=== PATIENT | female | born 1945 | race Caucasian/White ===

== ENCOUNTER → 2017-03-16 | Outpatient (CLI) | payer MEDICARE ==
[~2017-03-16] MED LIST: CITA-157 PO; FURO40TA35 PO; HYDR200T38 PO; LAMO25TA64 PO; LAMO25TB2 PO; LEVE100047 PO; LORA-1455 PO; LORA-1458 PO; MELO-149 PO; OXYC-865 PO; ZOLP-350 PO
--- NOTE | 2017-03-16 14:22 | EKG ---
FACILITY: [facility] [place] PATIENT NAME: ANIVAL ARMSTRONG : [id number] MR: [id number] V: [id number] EXAM DATE: ORDERING PHYSICIAN: SRIDHAR CAMACHO TECHNOLOGIST: MARYSOL Payne Reason : PREOP Blood Pressure : / mmHG Vent. Rate : 057 BPM Atrial Rate : 057 BPM P-R Int : 178 ms QRS Dur : 094 ms QT Int : 492 ms P-R-T Axes : 054 031 055 degrees QTc Int : 478 ms Sinus bradycardia Nonspecific T wave abnormality Prolonged QT Abnormal ECG No previous ECGs available Confirmed by LEI CAMP ([id number]) on 03/16/2017 2:59:09 PM Referred By: JANICE Confirmed By:LEI CAMP
--- NOTE | 2017-03-16 15:00 | RADIOLOGY IMAGING REPORT ---
FACILITY: [facility] [place]IENT NAME: Reena Iqbal : 1945 MR: [id number] V: [id number] EXAM DATE: ORDERING PHYSICIAN: SRIDHAR CAMACHO TECHNOLOGIST: Location: [facility] Patient: Reena Iqbal : 1945 Visit/Account:[id number] Date of Sevice: 03/16/2017 CT right shoulder Indication: Humerus fracture. Further characterize. Comparison: None available. Technique: Axial CT images were obtained through the right shoulder. Reformatted coronal and sagittal images were reviewed. One of the following dose optimization techniques was utilized in the performance of this exam: Autom ated exposure control; adjustment of the mA and/or kV according to the patient's size; or use of an i terative reconstruction technique. Specific details can be referenced in the facility's radiology C T exam operational policy. Findings: There is a comminuted fracture deformity of the proximal right humerus. While this is age indetermina nt, appearance suggests that this is subacute to chronic. Main fracture line is felt to involve the s urgical neck region. There is impaction at the fracture site. There is bone loss involving the love l head. Appearance is most consistent with an ununited fracture with a pseudoarthrosis between the hu meral head and the distal humerus. This would account for the humeral head bone loss. There is some s cattered bony callus and scattered fracture fragments. No evidence of bridging bone or callus is iden tified. Correlation with the acuity of this fracture is necessary. There is a type II acromion. There is a small subacromial spur. There are mild to moderate severity c hanges of acromioclavicular joint osteoarthritis. With respect to the glenohumeral joint, there is inferior subluxation of the humeral head with respec t to the glenoid. This may reflect a pseudosubluxation as there is an associated joint effusion suspe cted. There is also fluid suspected within the subacromial-subdeltoid bursa. No axillary adenopathy. Limited images of the right lung are clear. IMPRESSION: 1. Ununited, comminuted proximal right humerus fracture with impaction of the distal fracture fragmen t with the humeral head with associated humeral head bone loss. Appearance is most consistent with an evolving pseudoarthrosis in this location. 2. Mild inferior subluxation of the humeral head with respect to the glenoid. This may be related to an underlying glenohumeral joint effusion. Report Dictated By: Alphonse Lechuga at 03/16/2017 2:39 PM Report E-Signed By: Alphonse Lechuga at 03/16/2017 2:55 PM WSN:[id number]
--- NOTE | 2017-03-17 17:18 | RADIOLOGY IMAGING REPORT ---
FACILITY: [facility] PATIENT NAME: Reena Iqbal : 1945 MR: [id number] V: [id number] EXAM DATE: ORDERING PHYSICIAN: SRIDHAR CAMACHO TECHNOLOGIST: Location: [facility] Patient: Reena Iqbal : 1945 Visit/Account:[id number] Date of Sevice: 03/17/2017 Exam type: SHOULDER 1 VIEW RIGHT History: Status post right shoulder replacement Comparison: CT right shoulder March 16, 2017. Findings: There is a right shoulder arthroplasty that appears in good anatomic alignment on this single AP view . Skin analia project adjacent to the prosthesis IMPRESSION: 1. As above Report Dictated By: No Simons MD at 03/17/2017 5:12 PM Report E-Signed By: No Simons MD at 03/17/2017 5:13 PM WSN:[id number]
== END ==
LOC: CT 12:01
PROVIDERS: ATTEND Orthopaedic Surgery
DX: S42.201A Unspecified fracture of upper end of right humerus, initial encounter for closed fracture (principal); R94.31 Abnormal electrocardiogram [ECG] [EKG]; R00.1 Bradycardia, unspecified
CPT/HCPCS: 93005

== ENCOUNTER 2017-03-17 02:31 | Inpatient (IN) | payer MEDICARE ==
[2017-03-16 15:12] LABS: INR 0.96
[~2017-03-17] VITALS: Ht 165.1 cm; Wt 74.8 kg
[2017-03-17] VITALS (14 sets, daily range): BP systolic 85–146; BP diastolic 45–80
--- NOTE | 2017-03-17 04:56 | LEVENE H&P ---
DATE OF ADMISSION: March 17, 2017 IDENTIFICATION/CHIEF COMPLAINT The patient is a 71-year-old woman with a chief complaint of right shoulder pain and disability. HISTORY OF PRESENT ILLNESS Patient sustained a fall in December and had a displaced fracture of her proximal humerus. This has become further displaced, and she has failed to make any progress. Surgery is indicated to relieve pain and improve function. PAST MEDICAL HISTORY Notable for remote history of blood transfusion, rheumatoid arthritis, depression, seizure disorder. PAST SURGICAL HISTORY Notable for a bowel resection. She has also had contralateral elbow fracture with total elbow arthroplasty. ALLERGIES MORPHINE that causes itching and shortness of breath and SULFA DRUGS that does the same. CURRENT MEDICATIONS 1. Lasix 40 mg p.o. daily. 2. Plaquenil 200 mg 2 tabs p.o. daily. 3. Mobic 15 mg p.o. daily. 4. Lamictal 25 mg p.o. b.i.d. 5. Ativan 0.5 mg b.i.d. as needed. 6. Ambien 10 mg p.o. nightly. 7. Celexa 40 mg p.o. daily. 8. Percocet as needed. PHYSICAL EXAMINATION GENERAL: This is a healthy female. HEENT: She is normocephalic, atraumatic. NECK: Supple. LUNGS: Clear. HEART: Regular. ABDOMEN: Soft. ORTHOPEDIC EXAMINATION: The right shoulder has intact skin envelope. Neurovascular function is grossly intact. She has no active or passive motion secondary to guarding and pain. She is tender at the proximal humerus. RADIOGRAPHIC DATA Radiographs demonstrate a comminuted, displaced proximal humerus fracture, which is displaced. ASSESSMENT Subacute right proximal humerus surgical neck fracture with additional comminution, which is displaced and unstable. PLAN I have recommended reverse total shoulder arthroplasty as a reliable way to restore pain and relieve function. Risks, benefits and nonsurgical alternatives were reviewed, as well as alternative surgical approaches. She would like to go ahead and proceed. The nature of the procedure is reviewed as well as the anticipated rehabilitative course. Risks of the procedure include but are not limited to , major medical or anesthetic complication, infection, neurovascular injury, blood transfusion, stiffness, scarring, fracture, tendon rupture, instability, implant loosening, migration or failure, persistent or recurrent pain, need for additional surgery and other unforeseen. She understands and wishes to proceed. A signed permit is placed in the chart. No guarantees are given or implied. MTDD
[2017-03-17] MEDS ORDERED: ROPIVACAINE 0.2% 20 ML VIAL ONE (11:10)
[2017-03-17] MEDS ORDERED: ROPIVACAINE 0.5% 20 ML VIAL ONE (11:10)
[2017-03-17] MEDS ORDERED: DEXAMETHASONE SOD PHOS 10MG/ML ONE (11:11)
[2017-03-17] MEDS ORDERED: PROPOFOL EMUL(*) 10MG/ML 20 ML 20 ML ONE (11:17)
[2017-03-17] MEDS ORDERED: fentaNYL CITR 100 MCG/2 ML AMP ONE ×4 (11:18→16:47)
[2017-03-17] MEDS ORDERED: LIDOCAINE 2% IV 100 MG/5ML SYR ONE (11:18)
[2017-03-17] MEDS: fentaNYL CITR 100 MCG/2 ML AMP IVP PRN ×2 (12:12→13:03)
[2017-03-17] MEDS ORDERED: EPINEPHrine HCL 1 MG/ML AMP ONE (13:05)
[2017-03-17] MEDS ORDERED: ROCURONIUM BROM 10 MG/ML 10 ML ONE (13:05)
[2017-03-17] MEDS ORDERED: ONDANSETRON 4 MG/2 ML VIAL ONE (13:35)
[2017-03-17] MEDS ORDERED: FAMOTIDINE 20 MG TAB PO ONE (14:15)
[2017-03-17] MEDS ORDERED: TRANEXAMIC AC 1000 MG/10ML SDV 1,000 MG in DEXTROSE 5% 50 ML BAG 50 ML IV ONE (14:15)
[2017-03-17] MEDS ORDERED: ceFAZolin(*) 1 GM VIAL 1 GM in NS(*) 0.9% 100 ML ADDVANT BAG 100 ML IVPB ONE (14:15)
[2017-03-17] MEDS ORDERED: MIDAZOLAM 2 MG/2 ML VIAL IVP PRN (14:15)
[2017-03-17] MEDS ORDERED: cloNIDine EPIDUR INJ 100MCG/ML 40 MCG, ROPIVACAINE 0.5% 20 ML VIAL 25 ML, EPINEPHrine H... INJ ONE (14:15)
[2017-03-17] MEDS ORDERED: NORMOSOL R SOLN(*) 1000 ML BAG 1,000 ML IV PRN ×2 (14:15→16:35)
[2017-03-17] MEDS ORDERED: LIDOCAINE/SOD BICARB 8.4% SYR ID ONE (14:15)
[2017-03-17] MEDS ORDERED: SUGAMMADEX SOD 200 MG/2 ML SDV ONE (14:41)
[2017-03-17] MEDS ORDERED: LACTATED RINGER 3000 ML BAG IR ONE (15:34)
[2017-03-17] MEDS ORDERED: BISACODYL 10 MG SUPP PR PRN (16:35)
[2017-03-17] MEDS ORDERED: ZOLPIDEM TARTRATE 5 MG TAB PO PRN (16:35)
[2017-03-17] MEDS ORDERED: diphenhydrAMINE 25 MG CAP PO PRN (16:35)
[2017-03-17] MEDS ORDERED: MAGNESIUM HYDROXIDE* 30ML UDCP PO PRN (16:35)
[2017-03-17] MEDS ORDERED: BENZOCAINE/MENTHOL 1 EACH LOZG PO PRN (16:35)
[2017-03-17] MEDS ORDERED: diphenhydrAMINE 50 MG/ML VIAL IVP PRN (16:35)
[2017-03-17] MEDS ORDERED: ACETAMINOPHEN 325 MG TAB PO PRN (16:35)
[2017-03-17] MEDS ORDERED: PROMETHAZINE 25 MG/ML 1 ML AMP IVP PRN (16:35)
[2017-03-17] MEDS ORDERED: FLUSH 10 ML SYR IVP PRN (16:35)
[2017-03-17] MEDS: APAP/HYDROCODONE 325/7.5 TAB PO PRN ×2 (18:11→23:40)
--- NOTE | 2017-03-17 18:52 | Hospitalist Progress Note ---
Subjective Progress Notes Subjective No cp/sob. EBL 400cc. 1700cc of crystalloid, dexamethasone, ephedrine and TXA given intra-op. Physical Exam Vital Signs Date Time Temp Pulse Resp B/P (MAP) Pulse Ox O2 Delivery O2 Flow Rate FiO2 03/17/17 18:15 83 120/47 (71) 93 03/17/17 17:30 Nasal Cannula 1.0 03/17/17 17:16 97.9 20 Intake and Output 03/18/17 07:00 Intake Total 1800 ml Output Total 410 ml Balance 1390 ml Intake IV Total 1800 ml Output Urine Total 10 ml Estimated Blood Loss 400 ml # Voids 1 General Appearance: Alert, Awake, No Acute Distress Respiratory: Clear to Auscultation Assessment and Plan Problems: (1) Status post reverse total shoulder replacement Status: Acute Assessment & Plan: No CV/pulmonary issues. Will defer to Dr. Whatley for blood clot prevention. (2) Depression with anxiety Status: Chronic Assessment & Plan: Continue Citalopram. (3) Seizure Status: Chronic Assessment & Plan: Continue Lamotrigine, Levetiracetam, and Lorazepam. (4) Lupus (systemic lupus erythematosus) Status: Chronic Assessment & Plan: Continue Plaquenil. The patient is also on chronic Percocet for pain. Exam Sepsis Risk: No Definite Risk Problem Qualifiers (1) Status post reverse total shoulder replacement: Laterality: right Qualified Codes: Z96.611 - Presence of right artificial shoulder joint MYESHA ROSALES MD Mar 17, 2017 18:52
[2017-03-17] MEDS: levETIRAcetam 500 MG TAB PO SCH (21:01)
[2017-03-17] MEDS: LORazepam 0.5 MG TAB PO SCH (21:01)
[2017-03-17] MEDS: lamoTRIgine 25 MG TAB PO SCH (21:01)
[2017-03-17] MEDS: HYDROXYCHLOROQUINE 200 MG TAB PO SCH (21:01)
[2017-03-17] MEDS: ceFAZolin 1 GM VIAL IVP SCH (21:02)
[2017-03-17] MEDS ORDERED: KETOROLAC 15 MG/ML VIAL IVP ONE (21:25)
[2017-03-17] MEDS: MORPHINE 2 MG/ML SYR IVP PRN (21:57)
[2017-03-18] VITALS: BP 90/47
[2017-03-18 01:00] VITALS: BP 92/48
[2017-03-18 04:00] VITALS: BP 98/50
[2017-03-18] MEDS: ceFAZolin 1 GM VIAL IVP SCH (05:37)
--- NOTE | 2017-03-18 06:51 | OPERATIVE REPORT 1 ---
EVENT DATE: March 17, 2017 SURGEON: Arvin Whatley MD ANESTHESIOLOGIST: Heath Lucero MD ANESTHESIA: General plus scalene. SERVICE RIG OPERATOR: KARLI Hernandez PREOPERATIVE DIAGNOSIS Comminuted subacute displaced right proximal humerus surgical neck fracture. POSTOPERATIVE DIAGNOSIS Comminuted subacute displaced right proximal humerus surgical neck fracture. PROCEDURE PERFORMED Right shoulder reverse total shoulder arthroplasty with fixation of the greater and lesser tuberosities and tenodesis of the long head of the biceps. ESTIMATED BLOOD LOSS 400 mL. DRAINS None. SPECIMENS None. COMPLICATIONS No apparent. IMPLANTS Beka system with a reunion RSA glenoid base plate 28 mm, superior and inferior locking screws, anterior peripheral screw, a 6.5, 24 mm center screw, an artisan bone plug size small, polymethylmethacrylate cement, reunion RSA humeral fracture stem, 10 mm diameter, and a 32 mm humeral cup with a 4 mm humeral insert. INDICATIONS Reena sustained a proximal humerus fracture. This was managed by another physician. It has gone on to severely displace, and is not compatible with function. Surgery is indicated to relieve pain and restore some function. DESCRIPTION OF PROCEDURE Patient was taken to the operating room, placed supine on the operating table. Scalene block was administered by the anesthesiologist. General anesthesia was induced. Antibiotics and TXA were administered IV. The patient was positioned in modified beach chair position. All bony prominences and superficial nerves were well padded. Right shoulder girdle and upper extremity were prepped and draped free in the usual sterile fashion for shoulder arthroplasty. Curvilinear incision was made over the deltopectoral interval, carried down through the skin. Dissection was carried down to the cephalic vein, which was taken laterally with the deltoid. Dissection through scar planes was performed to free up the facioscapulohumeral interface. A bit of the upper border of the pec was released. Long head of the biceps was identified, tenodesed to the pec stump. The remainder was clipped and traced up into the rotator interval. The Hanson scissors were used to split into the rotator interval. The biceps was resected. At this point, osteotome was used to separate the greater and lesser tuberosity fracture fragments from the shell of the humeral head at the biceps groove. Control of each of the tuberosity fragments was obtained with a #2 Ethibond placed at the bone tendon junction. The greater was then retracted posterior superior and the lesser medially, and the head of the humerus, which is shelled out, was removed and extracted. The glenoid was identified, and the labrum was excised circumferentially. Anterior glenoid neck retractor was placed after freeing up subscapularis. The guide for the Metaglene was placed with the bottom at the inferior edge of the glenoid, and the center pin was placed until it exited the glenoid center line. The 32 mm reamer was used to prepare the glenoid until nice contact with the reamer was obtained with the back of the surface. The center hole was then measured, and a 24 was selected. The Metaglene was screwed into position and seated nicely while controlling rotation, so the superior and inferior screws were directed towards the best bone. Superior and inferior locking screws were placed towards the base of the coracoid and towards the lateral border of the scapula respectively to find optimal bone. Good solid screws were obtained. Anterior and posterior holes were shallow in order to add fixation; 14 would be ideal, but a 16 was the shortest screw available for peripheral locking anteriorly. This should not impinge on any critical structures. This was placed. Solid fixation of the Metaglene was achieved. Circumferential exposure and clearance of soft tissue was performed, and the Glenosphere was selected with a 2 mm off set and impacted onto the Metaglene, seated solidly. Attention was turned to humeral preparation. The humeral shaft was exposed and tapered cylindrical reaming was performed until endosteal contact was obtained at 12 mm. Downsizing was performed to a 12, and the fracture trial was inserted to determine the appropriate height and version. This was set for 30 degrees retroversion using the appropriate bar to guide position. This was provisionally expanded, and the tuberosities were brought back into position to determine the ideal height. In order to obtain reduction, the smallest available humeral cup was required , due to some contraction and shortening of the arm. It was felt that this position would be optimal, since the tuberosities would be repaired to add additional stability. Tuberosities were excavated a bit and thinned down so these would fit nicely along the sides of the trial implant, and then an additional #2 FiberWire was placed to fix these underneath to the slot in the implant to pull them down against the shaft and the textured bone and growth portion of the implant to achieve stability and hopefully function of some of the remaining cuff. All surfaces were lavaged. A bone plug was placed at the appropriate depth in the humeral canal, and this was copiously lavaged. A mix of polymethylmethacrylate was made, and the stem was inserted at the same height to avoid closing down the space of the tuberosities. The appropriate cup and humeral insert were impacted into position. Tuberosities were subsequently reduced and held in position as the cement polymerized. Once the cement was fully polymerized, the tuberosities were tied side to side after initially fixing the posterior surface sutures down to the slot to pull these firmly down against the bone and growth portion of the prosthesis. Range of motion was stable and solid. Additional margins of the tuberosities were tied up with [id number] sutures to close this area down. The wound was copiously lavaged. Hemostasis was ensured, and the deltopectoral interval was allowed to fold back together. Dermis was closed with 3-0 Vicryl, skin with surgical analia. Xeroform was applied followed by a dry, sterile dressing and an UltraSling. The patient was awakened from anesthesia and taken to the recovery room in stable condition, having tolerated the procedure well. Plan is for passive range of motion x 4 weeks, active assist x 1 month, no strengthening until 10-12 weeks postop, unrestricted use anticipated in 4-6 months. MTDD
[2017-03-18 06:59] LABS: PLATELET COUNT, AUTOMATED 164 K/uL (150-450)
--- NOTE | 2017-03-18 07:32 | Hospitalist Progress Note ---
Subjective Progress Notes Subjective No cp/sob. The patient has a low O2 requirement this morning. Physical Exam Vital Signs Date Time Temp Pulse Resp B/P (MAP) Pulse Ox O2 Delivery O2 Flow Rate FiO2 03/18/17 04:00 98.2 53 98/50 (66) 93 Nasal Cannula 1.0 03/17/17 19:30 18 General Appearance: Alert, Awake, No Acute Distress Respiratory: Clear to Auscultation Result Diagram: 03/18/17 0645 03/18/17 0645 Assessment and Plan Problems: (1) Status post reverse total shoulder replacement Status: Acute Assessment & Plan: No CV issues. Will defer to Dr. Whatley for blood clot prevention. (2) Hypoxia Status: Acute Assessment & Plan: Lungs clear. There is low clinical suspicion of pneumonia or PE. Likely, secondary to [place]'s high altitude, narcotics, recent surgery and anesthesia. If the patient is to go home on O2, will have saturations checked in a few days in PCP's office and bring the Hospitalists note. (3) Depression with anxiety Status: Chronic Assessment & Plan: Continue Citalopram. (4) Seizure Status: Chronic Assessment & Plan: Continue Lamotrigine, Levetiracetam, and Lorazepam. (5) Lupus (systemic lupus erythematosus) Status: Chronic Assessment & Plan: Continue Plaquenil. The patient is also on chronic Percocet for pain. Exam Sepsis Risk: No Definite Risk Problem Qualifiers (1) Status post reverse total shoulder replacement: Laterality: right Qualified Codes: Z96.611 - Presence of right artificial shoulder joint MYESHA ROSALES MD Mar 18, 2017 07:32
[2017-03-18 07:39] VITALS: BP 99/55
[2017-03-18] MEDS: APAP/HYDROCODONE 325/7.5 TAB PO PRN (07:50)
[2017-03-18] MEDS: LORazepam 0.5 MG TAB PO SCH (08:22)
[2017-03-18] MEDS: HYDROXYCHLOROQUINE 200 MG TAB PO SCH (08:22)
[2017-03-18] MEDS: lamoTRIgine 25 MG TAB PO SCH (08:23)
[2017-03-18] MEDS: levETIRAcetam 500 MG TAB PO SCH (08:23)
[2017-03-18] MEDS ORDERED: CITALOPRAM HYDROBROM 20 MG TAB PO SCH (09:00)
[2017-03-18] MEDS ORDERED: ASPIRIN 325 MG TAB PO SCH (09:00)
[2017-03-18 09:05] VITALS: Ht 165.1 cm; Wt 74.8 kg
[2017-03-18] MEDS ORDERED: ASPI-757 PO (09:08)
[2017-03-18] MEDS ORDERED: HYDR-4308 PO (09:13)
[2017-03-18] MEDS: MORPHINE 2 MG/ML SYR IVP PRN (09:22)
== END 2017-03-18 11:50 | disposition home or self-care (01) | DRG 483 ==
LOC: OR 02:31 → MED 17:14
PROVIDERS: ADMIT Orthopaedic Surgery; ATTEND Orthopaedic Surgery
PROC: 0RRJ00Z Replacement of Right Shoulder Joint with Reverse Ball and Socket Synthetic Substitute, Open Approach (ICD-10-PCS; principal; 2017-03-17 13:09)
DX: S42.291A Other displaced fracture of upper end of right humerus, initial encounter for closed fracture (principal); R09.02 Hypoxemia; G47.00 Insomnia, unspecified; F41.9 Anxiety disorder, unspecified; M05.9 Rheumatoid arthritis with rheumatoid factor, unspecified; F32.9 Major depressive disorder, single episode, unspecified; G40.909 Epilepsy, unspecified, not intractable, without status epilepticus; M32.9 Systemic lupus erythematosus, unspecified; W11.XXXA Fall on and from ladder, initial encounter; M19.90 Unspecified osteoarthritis, unspecified site; M54.9 Dorsalgia, unspecified; K21.9 Gastro-esophageal reflux disease without esophagitis; E78.00 Pure hypercholesterolemia, unspecified; I83.90 Asymptomatic varicose veins of unspecified lower extremity; Z88.5 Allergy status to narcotic agent; Z88.2 Allergy status to sulfonamides; Z96.622 Presence of left artificial elbow joint; Z98.0 Intestinal bypass and anastomosis status; Z90.49 Acquired absence of other specified parts of digestive tract; Z90.710 Acquired absence of both cervix and uterus; Z90.89 Acquired absence of other organs; Z86.79 Personal history of other diseases of the circulatory system; T70.29XA Other effects of high altitude, initial encounter; T40.605A Adverse effect of unspecified narcotics, initial encounter; T41.205A Adverse effect of unspecified general anesthetics, initial encounter
CPT/HCPCS: 36415; 82310; 82374; 82435; 82565; 82947; 84132; 84295; 84520; 85025; 85610; 86850; 86900; 86901; 93005; 97165; C1713; C1769; C1776; J0171; J0690; J0735; J1100; J1200; J1885; J2001; J2250; J2270; J2405; J2704; J2795; J3010; J7050; J7060

== ENCOUNTER 2018-06-22 00:41 | Observation (INO) | payer MEDICARE, MEDICAID ==
[2017-03-18 09:05] VITALS: Ht 132.1 cm; Wt 77.1 kg
[~2018-06-22] VITALS: Ht 132.1 cm; Wt 77.1 kg
[2018-06-22] VITALS (12 sets, daily range): BP systolic 96–186; BP diastolic 56–91
[~2018-06-22 00:41] MED LIST changes: +ASPI-757 PO; +HYDR-654 PO; -HYDR200T38 PO; +HYDR200T77 PO
--- NOTE | 2018-06-22 04:48 | LEVENE H&P ---
DATE OF ADMISSION: June 22, 2018 IDENTIFICATION/CHIEF COMPLAINT Reena is a 72-year-old woman who has chief complaint of a right arm injury. HISTORY OF PRESENT ILLNESS Patient injured her arm on June 14, when she tripped over a wagon handle and fell. She had immediate pain and deformity in the arm and was splinted at the [facility] in [place], referred for orthopedic evaluation. Her arm has had prior surgery. She had a reverse shoulder arthroplasty. She has known severe osteoporosis. PAST MEDICAL HISTORY Notable for remote history of seizure disorder, history of lupus, history of depression. PAST SURGICAL HISTORY Notable for the above-noted shoulder replacement as well as remote history of bowel resection. FAMILY HISTORY Noncontributory. SOCIAL HISTORY: Negative for tobacco and alcohol use. MEDICATIONS 1. Ambien once a day, 10 mg. 2. Celexa 40 mg p.o. daily. 3. Aspirin full strength, one p.o. daily. 4. Prilosec 20 mg over the counter, one p.o. daily. 5. Lasix 40 mg p.o. daily. 6. Plaquenil 200 mg p.o. b.i.d. 7. Mobic 15 mg p.o. b.i.d. 8. Lamictal 25 mg, half tablet p.o. daily. 9. Ativan 0.5 mg p.o. b.i.d. ALLERGIES 1. She is allergic to SULFA DRUGS. 2. MORPHINE causes itching, but no true drug allergies. PHYSICAL EXAMINATION GENERAL: This is healthy female. HEENT: Normocephalic, atraumatic. NECK: Supple. LUNGS: Clear. HEART: Regular. ABDOMEN: Soft. ORTHOPEDIC: Right shoulder has a well-healed deltopectoral incision. She has gross instability at the mid-arm with palpable crepitus and fracture motion. Skin is intact. Her neurovascular status is notable for altered sensibility in the median and radial nerve distribution, but motor function in these nerves is normal. Ulnar motor and sensory is normal. Radiographs demonstrate a minimally comminuted midshaft humerus fracture about 1 cm distal to the tip of her stem for her reverse shoulder arthroplasty, which appeared well fixed. ASSESSMENT Closed right humeral shaft periprosthetic fracture. PLAN I think the chance for mobilizing this and treating this conservatively and getting it to heal are extremely low. However, she is also very high risk for surgery due to severe osteoporosis. We discussed the options and she prefers to proceed with surgical treatment with open reduction and internal fixation, possible allograft strut. Nature of the procedure, risks, benefits, and the anticipated rehab course were reviewed. Risks of the procedure include but are not limited to , major medical or anesthetic complication, infection, neurovascular injury, blood transfusion, stiffness, scarring, re-fracture, nonunion, malunion, need for additional surgery, and other unforeseen. She understands and wishes to proceed. Signed permit was placed in the chart. No guarantees were given or implied. CHELSEY
[2018-06-22] MEDS ORDERED: TRANEXAMIC AC 1000 MG/10ML SDV 1,000 MG in DEXTROSE 5% 50 ML BAG 50 ML IV ONE (13:15)
[2018-06-22] MEDS ORDERED: ROPIVACAINE/EPI/CLONIDINE/KET 50 ML SYRINGE INJ ONE (13:15)
[2018-06-22] MEDS ORDERED: FAMOTIDINE 20 MG TAB PO ONE (13:15)
[2018-06-22] MEDS ORDERED: CLINDAMYCIN(*) 900 MG/NS 50 ML 50 ML IVPB ONE (13:15)
[2018-06-22] MEDS ORDERED: MIDAZOLAM 2 MG/2 ML VIAL IVP PRN (13:15)
[2018-06-22] MEDS ORDERED: LIDOCAINE/SOD BICARB 8.4% SYR ID ONE (13:15)
[2018-06-22] MEDS ORDERED: ceFAZolin(*) 1 GM VIAL 1 GM in NS(*) 0.9% 100 ML MINI-BAG 100 ML IVPB ONE ×2 (13:15)
[2018-06-22] MEDS ORDERED: NORMOSOL R SOLN(*) 1000 ML BAG 1,000 ML IV PRN ×2 (13:15→17:40)
[2018-06-22] MEDS ORDERED: VANCOMYCIN 1 GM VIAL ONE (14:36)
[2018-06-22] MEDS ORDERED: ROPIVACAINE 0.2% 20 ML VIAL ONE (14:41)
[2018-06-22] MEDS ORDERED: fentaNYL CITR 100 MCG/2 ML AMP ONE ×2 (14:43→17:16)
[2018-06-22] MEDS ORDERED: HYDROmorphone HCL 2 MG/ML SDV ONE (15:11)
[2018-06-22] MEDS ORDERED: LACTATED RINGER 3000 ML BAG IR ONE (16:03)
[2018-06-22] MEDS ORDERED: NS 0.9% IRRIGATION 1000ML PLCT IR ONE (16:03)
[2018-06-22] MEDS ORDERED: ONDANSETRON 4 MG/2 ML VIAL ONE (16:53)
[2018-06-22] MEDS ORDERED: PROPOFOL EMUL(*) 10MG/ML 20 ML 40 ML ONE (16:53)
[2018-06-22] MEDS ORDERED: SUCCINYLCHOL CHL 200MG/10ML VL ONE (16:59)
[2018-06-22] MEDS ORDERED: ROPIVACAINE 0.5% 20 ML VIAL ONE (17:13)
[2018-06-22] MEDS ORDERED: LIDOCAINE MPF 1% 5 ML VIAL ONE (17:14)
[2018-06-22] MEDS ORDERED: DEXAMETHASONE SOD PHOS 10MG/ML ONE (17:14)
[2018-06-22] MEDS ORDERED: BISACODYL 10 MG SUPP PR PRN (17:40)
[2018-06-22] MEDS ORDERED: MAGNESIUM HYDROXIDE* 30ML UDCP PO PRN (17:40)
[2018-06-22] MEDS ORDERED: FLUSH 10 ML SYR IVP PRN (17:40)
[2018-06-22] MEDS ORDERED: ZOLPIDEM TARTRATE 5 MG TAB PO PRN (17:40)
[2018-06-22] MEDS ORDERED: DIAZEPAM 5 MG TAB PO PRN (17:40)
[2018-06-22] MEDS ORDERED: PROMETHAZINE 25 MG/ML 1 ML AMP IVP PRN (17:40)
[2018-06-22] MEDS ORDERED: diphenhydrAMINE 50 MG/ML VIAL IVP PRN (17:40)
[2018-06-22] MEDS ORDERED: BENZOCAINE/MENTHOL 1 EACH LOZG PO PRN (17:40)
[2018-06-22] MEDS ORDERED: ACETAMINOPHEN 325 MG TAB PO PRN (17:40)
[2018-06-22] MEDS ORDERED: diphenhydrAMINE 25 MG CAP PO PRN (17:40)
--- NOTE | 2018-06-22 18:02 | OPERATIVE REPORT 1 ---
EVENT DATE: June 22, 2018 SURGEON: Arvin Whatley MD ANESTHESIOLOGIST: Moses Darby MD ANESTHESIA: General PREOPERATIVE DIAGNOSIS Right humeral shaft periprosthetic fracture. POSTOPERATIVE DIAGNOSIS Right humeral shaft periprosthetic fracture. PROCEDURE PERFORMED Open reduction, internal fixation of humeral shaft fracture with allograft bone strut, -22 modifier. INDICATIONS Reena is a 72-year-old woman who is status post reverse total shoulder arthroplasty. She tripped over a wagon handle and fell, hitting the distal extent of her cement mantle with an unstable humerus fracture. Surgery is indicated to restore stability and optimize opportunity for healing. DESCRIPTION OF PROCEDURE Patient is taken to the operating room and placed supine on the operating table. She is placed into a slightly reverse Trendelenburg position. Right upper extremity is prepped and draped in the usual sterile fashion for orthopedic surgery. The distal extent of the old deltopectoral incision is marked in a curvilinear incision for anterolateral approach to humerus. The incision is made and carried down through the skin and subcutaneous tissue. Dissection is carried down to the deep fascia. The interval between the brachialis and the brachioradialis is identified and bluntly dissected, and the radial nerve is identified in the base. The radial nerve is then traced up to the spiral groove and lifted subperiosteally off the back of the humerus at the proximal fragment and lateral, and the anterior cortices of the humerus are exposed. In the distal fragment, there is a retained cement restrictor. This is removed then as much as possible. The fracture is then manually manipulated into position and held provisionally with a 0.062 K-wire. A 4.5 narrow LCDC plate is contoured to the lateral cortex of the humerus. This is first fixed proximally with two unicortical locking screws. These were required due to the stem. Next, after assuring anatomic reduction of the fracture, distal fixation is achieved with four bicortical screws using standard AO technique. In the distalmost screw hole in the proximal fragment, a bicortical screw is achievable just below the tip of the stem into the cement mantle. This is placed using standard AO technique. The final hole will be used for augmentation with an allograft strut due to the patient's poor bone quality. A femoral allograft strut is defrosted and soaked in warm saline and Hibiclens. This is then copiously lavaged. Irrisept is also used to cleanse the graft. The ideal shape of the graft is marked with a lead template, and then this is cut from the femoral strut using a reciprocating saw and then contoured with a olegario to fit precisely anteriorly so there will be orthogonal plate fixation. This is stopped just short of the proximal end of the metallic plate and just short of the distal end of the metallic plate to dissipate stress risers. This is then affixed to the bone, and then in the third hole up, a locking loop for the islet is placed, and then Dall-Miles cable is placed using standard technique, staying subperiosteal around the humerus and the bone plate. The crimping fixation device is positioned over the cortical strut and secured. The strut is then secured distally using lag technique with a 4.5 screw, and then additional cable fixation is performed without islets, one proximal and one distal to the fracture site to complete the fixation of the fracture. Rock-solid fixation is achieved. No adjuvant fixation is felt to be needed. Wound is copiously lavaged with saline and then Irrisept and then cleaned again with saline. Vancomycin powder is placed deep in the wound. The deep fascia is closed with 0 Vicryl, the subcutaneous tissue with 3-0 Vicryl, and the skin with surgical analia. Xeroform is applied, followed by a dry, sterile dressing, a coaptation splint, and a sling. Patient is awakened from anesthesia and taken to the recovery room in stable condition having tolerated the procedure well. PLAN Plan postoperatively is after satisfactory skin healing to transition to a De Leon-type splint and initiate early elbow and shoulder range of motion. No strengthening until there is radiographic evidence of bone healing. CHELSEY
[2018-06-22] MEDS: APAP/HYDROCODONE 325/7.5 TAB PO PRN (19:53)
[2018-06-22] MEDS ORDERED: MELO-207 PO (20:25)
--- NOTE | 2018-06-22 21:24 | RADIOLOGY IMAGING REPORT ---
FACILITY: [facility] PATIENT NAME: Reena Iqbal : 1945 MR: [id number] V: [id number] EXAM DATE: ORDERING PHYSICIAN: SRIDHAR CAMACHO TECHNOLOGIST: Location: [facility] Patient: Reena Iqbal : 1945 Visit/Account:[id number] Date of Sevice: 06/22/2018 HUMERUS RIGHT HISTORY: AP AND LATERAL XRAYS ORIF RIGHT HUMERUS COMPARISON: None FINDINGS: AP and lateral views of the right humerus demonstrates that the patient is status post marybel ohumeral joint replacement. There is a compression plate with screws and cerclage wires fixing a mid humeral shaft fracture. There is good anatomic alignment. IMPRESSION: Status post open reduction internal fixation. Report Dictated By: Chay Lam at 06/22/2018 9:19 PM Report E-Signed By: Chay Lam at 06/22/2018 9:20 PM WSN:[email or web address] [id number]
[2018-06-22] MEDS ORDERED: ZOLPIDEM TARTRATE 10 MG TAB PO SCH (21:25)
--- NOTE | 2018-06-22 21:59 | Hospitalist Progress Note ---
Subjective Progress Notes Subjective No cp/sob. EBL 200cc. 1600cc of crystalloid and ephedrine given intra-op. Physical Exam Vital Signs Date Time Temp Pulse Resp B/P (MAP) Pulse Ox O2 Delivery O2 Flow Rate FiO2 06/22/18 19:56 98.7 20 Nasal Cannula 2.0 06/22/18 19:56 91 06/22/18 18:32 78 135/63 (87) General Appearance: Alert, Awake, No Acute Distress Cardiovascular: Regular Rate and Rhythm Respiratory: Clear to Auscultation Extremities: No Edema Assessment and Plan Problems: (1) Humerus fracture Status: Acute Assessment & Plan: She broke her arm after a fall on 06/07/18. It is complicated because it is a periprosthetic humeral shaft fracture. Conservative management was initially tried, but Dr. Whatley repaired it today. (2) Deep vein thrombosis of brachial vein Status: Acute Assessment & Plan: She incurred the fracture on 06/07. She returned to the ER for worsening pain and swelling of the right arm on 06/11 and was found to have a "small brachial vein DVT. She was initially placed on a Heparin drip, then switched to Lovenox and the by time of discharge was placed on ASA 325mg a day (possibly on 06/15) based on orthopedics recommendation because the clot was likely related to mechanical obstruction from the fracture. She last took it, yesterday. Because of the recent surgery, her bleeding risk outweighs the benefits of aggressive anticoagulation (e.g. Xarelto), but she likely needs to be on aggressive treatment when the bleeding risk is low enough. Bridging with ASA would be recommended. Another option could be to do another US (if safe rel ated to recent surgery) to see if clot is still present. (3) Seizure Status: Chronic Assessment & Plan: Continue Lamotrigine, Levetiracetam, and Lorazepam. (4) Depression with anxiety Status: Chronic Assessment & Plan: Continue Citalopram. (5) Lupus (systemic lupus erythematosus) Status: Chronic Assessment & Plan: Continue Plaquenil. Exam Sepsis Risk: No Definite Risk Problem Qualifiers (1) Humerus fracture: Laterality: right (2) Deep vein thrombosis of brachial vein: Laterality: right MYESHA ROSALES MD Jun 22, 2018 21:59
[2018-06-22] MEDS: HYDROXYCHLOROQUINE 200 MG TAB PO SCH (22:52)
[2018-06-22] MEDS: ceFAZolin(*) 1 GM VIAL 1 GM in NS(*) 0.9% 100 ML MINI-BAG 100 ML IVPB SCH (22:52)
[2018-06-22] MEDS: lamoTRIgine 25 MG TAB PO SCH (22:52)
[2018-06-22] MEDS: levETIRAcetam 500 MG TAB PO SCH (22:52)
[2018-06-22] MEDS: LORazepam 0.5 MG TAB PO SCH (22:53)
[2018-06-23 01:00] VITALS: BP 123/65
[2018-06-23 02:00] VITALS: BP 122/70
[2018-06-23 03:00] VITALS: BP 120/63
[2018-06-23] MEDS: ceFAZolin(*) 1 GM VIAL 1 GM in NS(*) 0.9% 100 ML MINI-BAG 100 ML IVPB SCH ×2 (05:41→11:17)
[2018-06-23] MEDS: APAP/HYDROCODONE 325/7.5 TAB PO PRN ×2 (07:15→11:07)
[2018-06-23] MEDS: LORazepam 0.5 MG TAB PO SCH (07:23)
[2018-06-23] MEDS: levETIRAcetam 500 MG TAB PO SCH (07:23)
[2018-06-23 07:26] VITALS: BP 119/72
[2018-06-23] MEDS ORDERED: ASPIRIN 81 MG CHEW PO SCH (09:00)
[2018-06-23] MEDS ORDERED: CITALOPRAM HYDROBROM 20 MG TAB PO SCH (09:00)
[2018-06-23] MEDS: lamoTRIgine 25 MG TAB PO SCH (09:13)
[2018-06-23] MEDS: HYDROXYCHLOROQUINE 200 MG TAB PO SCH (09:13)
[2018-06-23] MEDS ORDERED: ASPI-870 PO (09:35)
--- NOTE | 2018-06-23 09:39 | Hospitalist Progress Note ---
Subjective Progress Notes Subjective She was admitted s/p Humerus ORIF. She has no complaints this morning. She had no acute events overnight. Patient Complains of: Cardiovascular: No: Chest Pain Respiratory: No: Shortness of Breath Physical Exam Vital Signs Date Time Temp Pulse Resp B/P (MAP) Pulse Ox O2 Delivery O2 Flow Rate FiO2 06/23/18 07:26 97.6 57 20 119/72 (88) 92 Room Air 06/23/18 00:14 2.0 Intake and Output 06/23/18 01:00 Intake Total 2000 ml Balance 2000 ml IV Total 2000 ml # Voids 1 General Appearance: Alert, Awake, No Acute Distress, Afebrile Neuro: No Gross deficits Cardiovascular: Regular Rate and Rhythm Respiratory: No Respiratory Distress, Clear to Auscultation GI: Soft and Non-Tender Psych: Alert & Oriented X3, Appropriate Mood & Affect Assessment and Plan Problems: (1) Humerus fracture Status: Acute Assessment & Plan: She broke her arm after a fall on 06/07/18. It is complicated because it is a periprosthetic humeral shaft fracture. Conservative management was initially tried, but Dr. Whatley repaired it 06/22. (2) Deep vein thrombosis of brachial vein Status: Acute Assessment & Plan: She incurred the fracture on 06/07. She returned to the ER for worsening pain and swelling of the right arm on 06/11 and was found to have a "small brachial vein DVT. She was initially placed on a Heparin drip, then switched to Lovenox and the by time of discharge was placed on ASA 325mg a day (possibly on 06/15) based on orthopedics recommendation because the clot was found to be a chronic clot in nature, not acute. She last took ASA day before surgery. She will continue baby aspirin. (3) Seizure Status: Chronic Assessment & Plan: Continue Lamotrigine, Levetiracetam, and Lorazepam. (4) Depression with anxiety Status: Chronic Assessment & Plan: Continue Citalopram. (5) Lupus (systemic lupus erythematosus) Status: Chronic Assessment & Plan: Continue Plaquenil. Exam Sepsis Risk: No Definite Risk Problem Qualifiers (1) Humerus fracture: Laterality: right (2) Deep vein thrombosis of brachial vein: Laterality: right IFEANYI COHN [employer] Jun 23, 2018 09:39
[2018-06-23] MEDS ORDERED: HYDR-654 PO (09:42)
--- NOTE | 2018-06-23 14:04 | NUR ---
Occupational Therapy Impression Pt alert and agreeable to OT tx. Reports feeling improved this morning as she has felt increased confusion with decreased routine since fall. Orientedx3. Discussed memory strategies to aide through recalling recent events (fall/hospital admissions/sx/etc.) Reviewed precautions (NWB), wear/fit of sling, ADLs, and f/u with Dr. Whatley next week prior to initiating ther ex. Pt verbalizing understanding. Presents with no further questions/concerns for OT at this time. Plans to discharge home with family assist, MOW, and has HH services arranged. Occupational Therapy Goals Patient's Goal
== END 2018-06-23 09:39 | disposition home or self-care (01) ==
LOC: OR 00:41 → INTOOBSV 18:30 → MED 18:30
PROVIDERS: ADMIT Orthopaedic Surgery; ATTEND Orthopaedic Surgery
DX: S42.301A Unspecified fracture of shaft of humerus, right arm, initial encounter for closed fracture (principal)
CPT/HCPCS: 24515; 73060; 97165; 97535; A9270; C1713; G0378; J0330; J0690; J1100; J1170; J2001; J2250; J2405; J2704; J2795; J3010; J3370; J3490